=== PATIENT | female | born 1965 | race Caucasian/White ===

== ENCOUNTER 2018-08-10 09:59 | Emergency (ER) | payer MEDICARE ==
[~2018-08-10] VITALS: Ht 167.6 cm; Wt 76.7 kg
[2018-08-10 10:03] VITALS: Ht 167.6 cm; Wt 76.7 kg
[2018-08-10] MEDS ORDERED: ALBUTEROL SULF8.5 GM (10:08)
[2018-08-10 10:58] LABS: APPEARANCE CLEAR (CLEAR); BILIRUBIN NEGATIVE (NEGATIVE); COLOR YELLOW (YELLOW); GLUCOSE NEGATIVE (NEGATIVE); KETONE NEGATIVE (NEGATIVE); NITRITE NEGATIVE (NEGATIVE); PROTEIN NEGATIVE (NEGATIVE); SPECIFIC GRAVITY 1.005 (1.005-1.020); UROBILINOGEN NORMAL (NORMAL)
[2018-08-10 11:51] LABS: ALBUMIN 3.4 g/dL (3.4-5.0); ALKALINE PHOSPHATASE 52 U/L (46-116); ALT (SGPT) 64 U/L (10-68); BILIRUBIN - TOTAL 0.55 mg/dL (0.2-1.3); CALC OSMOLALITY 277 mosm/kg (275-300); CALCIUM 9.3 mg/dL (8.5-10.1); CARBON DIOXIDE 28.2 mmol/L (21.0-32.0); CHLORIDE - SERUM 105 mmol/L (98-107); CREATININE - SERUM 0.8 mg/dL (0.6-1.3); GLUCOSE 109 mg/dL (74-106); POTASSIUM - SERUM 4.5 mmol/L (3.5-5.1); SODIUM 139 mmol/L (136-145); UREA NITROGEN 9 mg/dL (7-18); eGFR NON AFRICAN AMERICAN 79 mL/min (90-120)
[2018-08-10 11:54] LABS: HEMATOCRIT 40.9 % (36.0-48.0); HEMOGLOBIN 14.1 g/dL (12-16); MCH 31.1 pg (26.0-34.0); MCHC 34.5 g/dL (31.0-37.0); MCV 90.3 fL (80.0-100.0); MEAN PLATELET VOLUME 11.1 fL (7.4-10.4); NEUTROPHILS 79.8 % (40-80); PLATELET COUNT 168 10x3/uL (130-400); RBC 4.53 10x6/uL (4.00-5.40); WBC 10.1 10x3/uL (4.8-10.8)
[2018-08-10] MEDS ORDERED: FLAGYL500 MG PO (12:01)
[2018-08-10] MEDS ORDERED: CIPRO500 MG PO (12:01)
[2018-08-10 12:44] VITALS: BP 132/90
== END 2018-08-10 12:45 | disposition home or self-care (01) ==
LOC: D.ER 09:59
PROVIDERS: Emergency Medicine
DX: K57.12 Diverticulitis of small intestine without perforation or abscess without bleeding (principal)

== ENCOUNTER → 2019-08-08 10:52 | Outpatient (CLI) | payer OTHER ==
[~2019-08-08 10:52] MED LIST: ALBUTEROL SULF8.5 GM; CIPRO500 MG PO; FLAGYL500 MG PO
== END | disposition home or self-care (01) ==
LOC: D.HCCARDIO 10:52
PROVIDERS: ATTEND Internal Medicine Cardiovascular Disease
DX: I20.9 Angina pectoris, unspecified (principal)

== ENCOUNTER → 2019-10-14 09:13 | Outpatient (CLI) | payer OTHER | END | disposition home or self-care (01) | LOC: D.HCCARDIO 09:13 | PROVIDERS: ATTEND Internal Medicine Cardiovascular Disease | DX: I20.9 Angina pectoris, unspecified (principal) ==

== ENCOUNTER → 2019-11-06 09:26 | Outpatient (CLI) | payer OTHER ==
[2019-11-07 14:10] LABS: ANA REFLEX - DIRECT Negative (Negative)
[2019-11-08 18:30] LABS: MITOCHONDRIAL ANTIBODY <20.0 Units (0.0-20.0); SMOOTH MUSCLE ABS (ACTIN) 8 Units (0-19)
== END | disposition home or self-care (01) ==
LOC: D.LAB 09:26
PROVIDERS: ATTEND Internal Medicine Gastroenterology
DX: R74.8 Abnormal levels of other serum enzymes (principal); K76.0 Fatty (change of) liver, not elsewhere classified

== ENCOUNTER 2020-08-25 15:30 | Outpatient (CLI) | payer OTHER | END 2020-08-25 23:59 | disposition home or self-care (01) | LOC: D.MAMMO 15:30 | PROVIDERS: ATTEND Family Medicine | DX: Z12.31 Encounter for screening mammogram for malignant neoplasm of breast (principal) ==